=== PATIENT | female | born 1935 | race Caucasian/White ===

== ENCOUNTER → 2018-06-16 07:38 | Outpatient (CLI) | payer MEDICARE, OTHER, SELFPAY ==
--- NOTE | 2018-06-16 | DI.ECHO.S_ITS ---
[facility] +---------+ [facility] +---------+ : : [address] : : : : [place], [place] : : : : [id number] : : : : Phone: [phone]---------+ Echocardiogram Report + + :Name: OLIVA CHANEY Study Date: 06/16/2018 Height: 62 in : :[facility] Exam Location: IS Weight: 171 lb : : Gender: Female BSA: 1.8 m2 : :: 1935 Age: 82 yrs BP: 115/80 mmHg: :Reason For Study: SOB : :Ordering Physician: Tano : :José Performed By: Darcy Page : + + Interpretation Summary The left ventricle is normal in size. Normal wall thickness at the base with significant apical hypertrophy , this was noted on the prior exam as well. Left ventricular ejection fraction is estimated to be 70 +/- 5%. The echo findings are consistent with mild dynamic left ventricular intracavitary obstruction. E/E' med: 23.2 The right ventricle is normal in size and function. There is moderate mitral regurgitation. Compared to the prior echo study, there has been no change in the severity of mitral regurgitation. There is no hemodynamically significant valvular aortic stenosis. There is mild to moderate tricuspid regurgitation. Compared to the prior echo exam, there has been no change in TR severity. The right ventricular systolic pressure is estimated to be at least 33 mmHg based on an estimated right atrial pressure of 3 mm Hg. The ascending aorta is mildly enlarged. Procedure: A two-dimensional transthoracic echocardiogram with color flow and Doppler was performed. The study quality was technically adequate. A contrast injection of Definity was performed to improve assessment of LV function. Comparison is made with the echocardiogram of 01/17/2017. The heart rate ranged between 44-53 bpm during the study. The patient was in sinus bradycardia with heart rates between 44-53 bpm during the exam. The patient had occasional PACs during the exam. Left Ventricle: The left ventricle is normal in size. Normal wall thickness at the base with significant apical hypertrophy , this was noted on the prior exam as well. The echo findings are consistent with mild dynamic left ventricular intracavitary obstruction. There is no thrombus. Left ventricular ejection fraction is estimated to be 70 +/- 5%. There are no focal wall motion abnormalities. E/E' med: 23.2. Right Ventricle: The right ventricle is normal in size and function. Atria: The left atrium is severely dilated. The left atrium has remained unchanged in size since the prior echo exam. The right atrium is mildly dilated. There is no Doppler evidence for an interatrial shunt. Mitral Valve: The mitral valve leaflets appear mildly thickened, but open well. There is mild to moderate mitral annular calcification. There is moderate mitral regurgitation. Compared to the prior echo study, there has been no change in the severity of mitral regurgitation. Aortic Valve: The aortic valve is trileaflet. Leaflet mobility is mildly reduced. The aortic valve is mildly calcified. There is no hemodynamically significant valvular aortic stenosis. There is trace aortic regurgitation. Tricuspid Valve: The tricuspid valve is normal. There is mild to moderate tricuspid regurgitation. The right ventricular systolic pressure is estimated to be at least 33 mmHg based on an estimated right atrial pressure of 3 mm Hg. Compared to the prior echo exam, there has been no change in TR severity. Pulmonic Valve: The pulmonic valve is not well visualized. There is trace pulmonic regurgitation. Great Vessels: The aortic root is normal size. The ascending aorta is mildly enlarged. The pulmonary artery is not well visualized, but is probably normal size. The IVC is of normal diameter and collapses greater than 50% with a sniff. This suggests a low right atrial pressure of 3 mm Hg. Pericardium/ Pleura There is no pericardial effusion. There is no pleural effusion. MMode/2D Measurements & Calculations LVIDd: 5.4 cm LVOT diam: 2.0 cm LVIDs: 3.8 cm Ao root diam: 3.1 cm FS: 29.7 % asc Aorta Diam: 3.8 cm EPSS: 0.96 cm IVSd: 0.75 cm LVPWd: 0.94 cm LV bonds. diameter/BSA (cm/m^2): 3.0 LV sys. diameter/BSA (cm/m^2): 2.1 LA A2 area: 42.6 cm2 RA long axis: 6.7 cm LA A4 area: 39.5 cm2 RA area: 22.7 cm2 LA length (vol): 7.8 cm RA vol: 65.2 ml LA vol: 183.1 ml RA : 36.4 ml/m2 LA vol index: 102.4 ml/m2 IVC diam: 2.1 cm RVD1 (basal): 3.3 cm TAPSE: 2.9 cm Doppler Measurements & Calculations Ao V2 max: 205.1 cm/sec LVOT Max Mick: 73.5 cm/sec Ao V2 mean: 137.5 cm/sec LV V1 max P.2 mmHg Ao max P.8 mmHg LV V1 VTI: 17.2 cm Ao mean P.7 mmHg LEONEL(I,D): 1.2 cm2 Ao V2 VTI: 44.7 cm LEONEL(V,D): 1.1 cm2 sev ratio: 0.39 LEONEL indexed to BSA (cm^2/m^2): 0.69 MV E max mick: 108.9 cm/sec TR max mick: 271.8 cm/sec Med Peak E' Mick: 4.7 cm/sec TR max P.6 mmHg E/E' med: 23.2 PA V2 max: 63.6 cm/sec Lat Peak E' Mick: 5.9 cm/sec PA V2 mean: 43.1 cm/sec E/E' lat: 18.5 PA mean P.82 mmHg E/e' average: 20.9 PA Accel Time: 0.08 sec MV P1/2t: 58.4 msec MV P1/2t max mick: 109.6 cm/sec SV(LVOT): 54.9 ml MVA(P1/2t): 3.8 cm2 Reading Physician:OCTAVIA
== END ==
PROVIDERS: PCP Internal Medicine; Visit Provider Internal Medicine Cardiovascular Disease
DX: I08.1 Rheumatic disorders of both mitral and tricuspid valves (principal); R06.02 Shortness of breath; I77.89 Other specified disorders of arteries and arterioles
CPT/HCPCS: 93306; Q9957

== ENCOUNTER 2019-09-08 11:53 | Emergency (ER) | payer MEDICARE, OTHER, SELFPAY ==
[2019-09-08] VITALS (16 sets, daily range): BP systolic 122–155; BP diastolic 58–77; PULSE 59–70; RESP 18–36; TEMP 37.1; O2SAT 91–95
--- NOTE | 2019-09-08 12:10 | DI.RAD.S_ITS ---
PROCEDURE: XR CHEST 1V INDICATIONS: flu-like symptoms TECHNIQUE: One view of the chest was acquired. COMPARISON: None. FINDINGS: Surgical changes and devices: None. Lungs and pleura: Lungs are abnormal, with a mild pulmonary edema pattern. No pleural effusions or pneumothorax. Mediastinum: Mediastinal contours appear normal. Heart size is mildly enlarged. Bones and chest wall: No suspicious bony lesions. Overlying soft tissues appear unremarkable. IMPRESSION: Mild chronic CHF pattern with mild generalized pulmonary edema and mild cardiomegaly. Dictated by: Hal Deleon M.D. on 09/08/2019 at 13:25 Approved by: Hal Deleon M.D. on 09/08/2019 at 13:26
--- NOTE | 2019-09-08 12:13 | ED_ITS ---
HPI - SOB/Dyspnea General Chief Complaint: Shortness of Breath/Dyspnea Stated Complaint: SOB Time Seen by Provider: 09/08/19 11:57 Source: patient and family Mode of arrival: Wheelchair Limitations: no limitations History of Present Illness HPI Narrative: Patient is an 84-year-old female with history of atrial fibri llation and congestive heart failure presenting with increasing shortness of breath over the last 4 days. 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 She denies any fever chills or cough. She has had orthopnea over the last 2 nights. She denies any worsening lower extremity edema, although her left leg is more swollen than her right which is normal. She denies any chest pain or heart palpitations MD Complaint: shortness of breath Related Data Previous Rx's Medication Instructions Recorded furosemide [Lasix] 40 mg PO BID #6 tab 09/08/19 Allergies Allergy/AdvReac Type Severity Reaction Status Date / Time erythromycin base Allergy Unknown Verified 09/08/19 13:02 eucalyptus AdvReac Severe Headache Verified 09/08/19 13:02 Lzilwce-[id number]-Zwc Reductase AdvReac Severe Muscle Pain Verified 09/08/19 13:02 Inhibitor Review of Systems Review of Systems ROS Unobtainable: All systems reviewed & are unremarkable except as noted in HPI and below Constitutional Constitutional: Denies chills, Denies fever(s), Denies lethargy and Denies weakness Eyes Eyes: Denies change in vision, Denies eye discharge, Denies irritation and Denies loss of vision ENT Ears, Nose, Mouth, and Throat: Denies change in voice, Denies neck pain and Denies sore throat Cardiovascular Cardiovascular: Reports as per HPI and Reports dyspnea Respiratory Respiratory: Reports as per HPI and Reports dyspnea Musculoskeletal Musculoskeletal: Denies neck pain Integumentary/Breasts Skin/Breast: Denies pruritus, Denies erythema, Denies rash and Denies wounds Neurologic Neurologic: Denies loss of vision and Denies weakness Patient History Medical History Atrial fibrillation (Acute) CHF (congestive heart failure) (Acute) Social History Smoking Status: Former smoker Smoking Status: Former smoker alcohol intake frequency: 0-2 drinks per day Substance Use Type: does not use Exam Initial Vital Signs Initial Vital Signs: Vital Signs Temperature 98.8 F 09/08/19 12:01 Pulse Rate 64 09/08/19 12:01 Respiratory Rate 18 09/08/19 12:01 Blood Pressure 144/70 H 09/08/19 12:01 Pulse Oximetry 93 09/08/19 12:01 GENERAL: Pleasant alert well-appearing female and in no acute distress. HEENT: Head atraumatic,EOMI, pupils reactive, face symmetric, moist mucous membranes CARDIOVASCULAR: Regular rate and rhythm without murmurs, rubs or gallops. RESPIRATORY: Conversational dyspnea, slight expiratory wheezing no rales or rhonchi ABDOMEN: Soft, nontender. Normoactive bowel sounds all 4 quadrants. No guarding or rebound. EXTREMITIES: Normal range of motion, no clubbing or edema. Neurovascularly intact NEUROLOGICAL: Alert and oriented x4.Normal gait and speech. Cranial nerves II through XII grossly intact. SKIN: Warm, dry, no laceration, no petechiae, no rashes or lesions. Course Orders Ordered: ED Orders 09/08/19 12:01 EKG-12 Lead Stat 09/08/19 12:10 XR chest 1V Stat 09/08/19 13:16 C-Reactive Protein Quant Stat Complete Blood Count AUTO DIFF Stat Comprehensive Metabolic Panel Stat Ferritin Stat Lactate (Lactic Acid) Stat NT-proBNP (BNP-Adult 18+) Stat Procalcitonin Stat Troponin & CK Cardiac Panel Stat 09/08/19 13:40 Blood Culture Stat Discontinued Medications Furosemide (Lasix) 40 mg IV NOW ONE Stop: 09/08/19 13:36 Last Admin: 09/08/19 13:53 Dose: 40 mg Documented by: SCOTT Vital Signs Vital signs: Vital Signs - 8 hr 09/08/19 12:01 09/08/19 12:36 09/08/19 12:45 Temperature 98.8 F Pulse Rate 64 70 63 Respiratory Rate 18 25 H Blood Pressure 144/70 H 155/75 H 143/70 H Pulse Oximetry 93 93 94 09/08/19 13:00 09/08/19 13:15 09/08/19 13:30 Temperature Pulse Rate 67 64 61 Respiratory Rate 30 H 36 H Blood Pressure 132/77 140/70 129/73 Pulse Oximetry 93 94 93 09/08/19 13:45 09/08/19 14:00 09/08/19 14:15 Temperature Pulse Rate 63 63 Respiratory Rate Blood Pressure 144/69 H Pulse Oximetry 93 09/08/19 14:30 09/08/19 14:45 09/08/19 15:00 Temperature Pulse Rate 63 61 Respiratory Rate 28 H 28 H Blood Pressure 134/72 143/65 H Pulse Oximetry 92 94 09/08/19 15:01 09/08/19 15:15 09/08/19 15:16 Temperature Pulse Rate 59 L 63 61 Respiratory Rate 30 H 32 H 31 H Blood Pressure 146/71 H 140/67 Pulse Oximetry 94 95 94 09/08/19 15:30 Temperature Pulse Rate 60 Respiratory Rate 26 H Blood Pressure 122/58 L Pulse Oximetry 91 MDM - SOB/Dyspnea Lab Data Attestation: I reviewed the patient's lab results. Result diagrams: 09/08/19 13:16 09/08/19 13:16 Labs: Lab Results 09/08/19 09/08/19 09/08/19 Range/Units 13:16 13:16 13:16 WBC 8.9 (4.5-11.0) X10^3/uL RBC 4.09 (4.0-5.2) X10^6/uL Hgb 13.3 (12.0-16.0) g/dL Hct 39.2 (36-46) % MCV 95.7 (80-100) fL MCH 32.6 (26-34) PG MCHC 34.0 (30-36) % RDW 13.1 (11.6-14.8) % Plt Count 225 (150-400) X10^3/uL Neut % (Auto) 68.8 (50-75) % Lymph % (Auto) 23.6 L (25-40) % Faulk % (Auto) 5.2 (3-14) % Eos % (Auto) 1.9 L (2-4) % Baso % (Auto) 0.5 (0-2) % Neut # (Auto) 6100 (1983-4556) /uL Lymph # (Auto) 2100 (4448-4469) /uL Faulk # (Auto) 500 (0-900) /uL Eos # (Auto) 200 (0-450) /uL Baso # (Auto) 0 (0-100) /uL Sodium 139 (137-145) mmol/L Potassium 4.2 (3.4-5.1) mmol/L Chloride 105 (98-107) mmol/L Carbon Dioxide 24 (22-32) mmol/L BUN 17 (7-17) mg/dL Creatinine 0.60 (0.52-1.04) mg/dL Estimated GFR > 60.0 (>60) mL/min BUN/Creatinine Ratio 28.3 H (6-22) Glucose 112 H (80-110) mg/dL Lactate (0.7-2.1) mmol/L Calcium 9.9 (8.4-10.2) mg/dL Ferritin 128 (11-264) ng/mL Total Bilirubin 1.7 H (0.2-1.3) mg/dL AST 70 H (14-36) IU/L ALT 27 (<35) IU/L Alkaline Phosphatase 50 (38-126) U/L Total Creatine Kinase 203 H (30-135) U/L CK-MB (CK-2) 3.59 H (<2.37) ng/mL CK-MB (CK-2) Rel Index 1.8 (1.5-5.0) % Troponin I 0.016 (0.01-0.034) ng/mL C-Reactive Protein 13.1 H (<1.0) mg/dL NT-Pro-B Natriuret Pep 1800 H (<450) pg/mL Total Protein 7.8 (6.3-8.2) g/dL Albumin 4.5 (3.5-5.0) g/dL Globulin 3.3 (1.7-4.1) g/dL Albumin/Globulin Ratio 1.4 (1.0-2.8) Procalcitonin < 0.05 (<0.5) ng/mL COVID-19 PCR (Negative) 09/08/19 09/08/19 Range/Units 13:16 13:20 WBC (4.5-11.0) X10^3/uL RBC (4.0-5.2) X10^6/uL Hgb (12.0-16.0) g/dL Hct (36-46) % MCV (80-100) fL MCH (26-34) PG MCHC (30-36) % RDW (11.6-14.8) % Plt Count (150-400) X10^3/uL Neut % (Auto) (50-75) % Lymph % (Auto) (25-40) % Faulk % (Auto) (3-14) % Eos % (Auto) (2-4) % Baso % (Auto) (0-2) % Neut # (Auto) (8317-1718) /uL Lymph # (Auto) (6100-1416) /uL Faulk # (Auto) (0-900) /uL Eos # (Auto) (0-450) /uL Baso # (Auto) (0-100) /uL Sodium (137-145) mmol/L Potassium (3.4-5.1) mmol/L Chloride (98-107) mmol/L Carbon Dioxide (22-32) mmol/L BUN (7-17) mg/dL Creatinine (0.52-1.04) mg/dL Estimated GFR (>60) mL/min BUN/Creatinine Ratio (6-22) Glucose (80-110) mg/dL Lactate 1.5 (0.7-2.1) mmol/L Calcium (8.4-10.2) mg/dL Ferritin (11-264) ng/mL Total Bilirubin (0.2-1.3) mg/dL AST (14-36) IU/L ALT (<35) IU/L Alkaline Phosphatase (38-126) U/L Total Creatine Kinase (30-135) U/L CK-MB (CK-2) (<2.37) ng/mL CK-MB (CK-2) Rel Index (1.5-5.0) % Troponin I (0.01-0.034) ng/mL C-Reactive Protein (<1.0) mg/dL NT-Pro-B Natriuret Pep (<450) pg/mL Total Protein (6.3-8.2) g/dL Albumin (3.5-5.0) g/dL Globulin (1.7-4.1) g/dL Albumin/Globulin Ratio (1.0-2.8) Procalcitonin (<0.5) ng/mL COVID-19 PCR Negative (Negative) Imaging Data Chest x-ray: Radiologist's Impression: PROCEDURE: XR CHEST 1V INDICATIONS: flu-like symptoms TECHNIQUE: One view of the chest was acquired. COMPARISON: None. FINDINGS: Surgical changes and devices: None. Lungs and pleura: Lungs are abnormal, with a mild pulmonary edema pattern. No pleural effusions or pneumothorax. Mediastinum: Mediastinal contours appear normal. Heart size is mildly enlarged. Bones and chest wall: No suspicious bony lesions. Overlying soft tissues a ppear unremarkable. IMPRESSION: Mild chronic CHF pattern with mild generalized pulmonary edema and mild cardiomegaly. Dictated by: Hal Deleon M.D. on 09/08/2019 at 13:25 Approved by: Hal Deleon M.D. on 09/08/2019 at 13:26 ECG Data Attestation: I personally reviewed and interpreted this ECG as follows: Prior ECG tracings: available for review Interpretation: Normal sinus rhythm rate 67 p.r. interval 204 QRS [address] elevation depression or T-wave inversion Q-wave noted in lead 3 similar to previous EKG actually EKGs improved significantly from 2015 MDM Narrative Medical decision making narrative: Patient's COVID test is negative. She responded well to Lasix and is breathing much better in fact she is talking quite a lot. She has an ambulation trial and O2 level stays at 92%. She takes Lasix 40 mg once a day though it is prescribed 20 mg twice a day. I will give her 40 mg twice a day for the next 3 days. All questions have been answered. Discharge Plan Departure Patient Disposition: Home Clinical Impression: CHF (congestive heart failure) Qualifiers: Heart failure type: unspecified Heart failure chronicity: acute Qualified Code(s): I50.9 - Heart failure, unspecified Discharge Date/Time: 09/08/19 15:50 Instructions: DI for Heart Failure Activity Restrictions/Additional Instructions: *You have been diagnosed with congestive heart failure *What to do: COVID test negative *Continue to take medications as directed Lasix 40 mg twice a day for 3 days start tomorrow *Follow up with your primary care provider in 2-3 days *Return to ER if you should have increasing shortness of breath chest pain fever cough or any new, worsening or concerning symptoms Prescriptions: New furosemide [Lasix] 40 mg tablet 40 mg PO BID Qty: 6 RF: 0 Referrals: Natalee Martin MD [Primary Care Provider] - Tano Kumar MD [Physician] -
[2019-09-08 13:26] LABS: Add Manual Diff / Slide Review NO; Basophils Absolute Auto 0 /uL (0-100); Basophils Percent Auto 0.5 % (0-2); Eosinophils Absolute Auto 200 /uL (0-450); Eosinophils Percent Auto 1.9 % (2-4); Hematocrit 39.2 % (36-46); Hemoglobin 13.3 g/dL (12.0-16.0); Lymphocytes Absolute Auto 2100 /uL (1100-4500); Lymphocytes Percent Auto 23.6 % (25-40); Mean Corpuscular Hemoglobin 32.6 PG (26-34); Mean Corpuscular Volume 95.7 fL (80-100); Monocytes Absolute Auto 500 /uL (0-900); Monocytes Percent Auto 5.2 % (3-14); Neutrophils Absolute Auto 6100 /uL (1500-7000); Neutrophils Percent Auto 68.8 % (50-75); Platelet Count 225 X10^3/uL (150-400); Red Blood Cell Count 4.09 X10^6/uL (4.0-5.2); Red Cell Distribution Width 13.1 % (11.6-14.8); White Blood Cell Count 8.9 X10^3/uL (4.5-11.0)
[2019-09-08] MEDS: FUROSEMIDE 40 MG/4 ML VIAL IV (13:53)
[2019-09-08 14:05] LABS: Lactate (Lactic Acid) 1.5 mmol/L (0.7-2.1)
[2019-09-08 14:07] LABS: Alanine Aminotransferase 27 IU/L (<35); Albumin 4.5 g/dL (3.5-5.0); Albumin Globulin Ratio 1.4 (1.0-2.8); Alkaline Phosphatase 50 U/L (38-126); Aspartate Aminotransferase 70 IU/L (14-36); BUN Creatinine Ratio 28.3 (6-22); Bilirubin Total 1.7 mg/dL (0.2-1.3); Blood Urea Nitrogen 17 mg/dL (7-17); Calcium 9.9 mg/dL (8.4-10.2); Carbon Dioxide 24 mmol/L (22-32); Chloride 105 mmol/L (98-107); Creatine Kinase 203 U/L (30-135); Estimated Glomerular Filt Rate > 60.0 mL/min (>60); Globulin 3.3 g/dL (1.7-4.1); Glucose 112 mg/dL (80-110); HEMOLYSIS 21 (0-50); Potassium 4.2 mmol/L (3.4-5.1); Sodium 139 mmol/L (137-145); Total Protein 7.8 g/dL (6.3-8.2)
[2019-09-08 14:15] LABS: Procalcitonin < 0.05 ng/mL (<0.5)
[2019-09-08 14:16] LABS: NT-proBNP (BNP-Adult 18+) 1800 pg/mL (<450); Troponin I 0.016 ng/mL (0.01-0.034)
[2019-09-08 14:19] LABS: C-Reactive Protein Quant 13.1 mg/dL (<1.0)
[2019-09-08 14:20] LABS: CKMB % Relative Index 1.8 % (1.5-5.0); Creatine Kinase MB 3.59 ng/mL (<2.37)
[2019-09-08 14:39] LABS: Ferritin 128 ng/mL (11-264)
[2019-09-08 15:12] LABS: COVID19 -Nasal RAPID Negative (Negative)
== END 2019-09-08 15:50 | disposition home or self-care (01) ==
PROVIDERS: Emergency Provider Emergency Medicine; PCP Internal Medicine
DX: I50.9 Heart failure, unspecified (principal); R68.89 Other general symptoms and signs; I48.91 Unspecified atrial fibrillation; R06.02 Shortness of breath
CPT/HCPCS: 36415; 71045; 80053; 82550; 82553; 82728; 83605; 83880; 84145; 84484; 85025; 86140; 87040; 87635; 93005; 93010; 96374; 99284; J1940

== ENCOUNTER → 2020-09-14 12:05 | Outpatient (CLI) | payer MEDICARE, OTHER, SELFPAY ==
--- NOTE | 2020-09-14 | DI.US.S_ITS ---
PROCEDURE: US CAROTID DOPPLER BI INDICATIONS: Dizziness and giddiness TECHNIQUE: Color and pulse Doppler interrogation was performed of both carotid systems, with image documentation and velocity measurements. COMPARISON: None. FINDINGS: Stenosis calculations are based on SRU (Society of Radiologists in Ultrasound) criteria. Right side: Brachial blood pressure: 152/92 mm Hg. Common carotid artery peak systolic velocity: 41 cm/sec. Internal carotid artery peak systolic velocity: 46 cm/sec. Internal carotid artery end diastolic velocity: 21 cm/sec. External carotid artery peak systolic velocity: 55 cm/sec. ICA/CCA peak systolic ratio: 1.1 . Willis scale imaging description: No visualized plaque. Percent internal carotid artery stenosis: No hemodynamically significant stenosis . Vertebral artery: Flow direction is antegrade. Left side: Brachial blood pressure: 142/89 mm Hg. Common carotid artery peak systolic velocity: 46 cm/sec. Internal carotid artery peak systolic velocity: 52 cm/sec. Internal carotid artery end diastolic velocity: 14 cm/sec. External carotid artery peak systolic velocity: 54 cm/sec. ICA/CCA peak systolic ratio: 1.1 . Willis scale imaging description: Mild plaque at the bifurcation. Percent internal carotid artery stenosis: Less than 50% . Vertebral artery: Flow direction is antegrade. IMPRESSION: Less than 50% stenosis of the left internal carotid artery. Dictated by: Shannan Dolan M.D. on 09/14/2020 at 15:50 Approved by: Shannan Dolan M.D. on 09/14/2020 at 15:51
== END ==
PROVIDERS: PCP Internal Medicine; Referring Provider Internal Medicine Cardiovascular Disease; Visit Provider Internal Medicine Cardiovascular Disease
DX: I65.22 Occlusion and stenosis of left carotid artery (principal); R42 Dizziness and giddiness
CPT/HCPCS: 93880

== ENCOUNTER → 2021-07-13 09:48 | Outpatient (CLI) | payer MEDICARE, OTHER, SELFPAY ==
[2021-07-13 10:42] LABS: COVID19 -Nasal RAPID Negative (Negative)
== END ==
PROVIDERS: PCP Internal Medicine; Referring Provider Internal Medicine; Visit Provider Internal Medicine
DX: Z20.822 Contact with and (suspected) exposure to COVID-19 (principal)
CPT/HCPCS: 87635; C9803

== ENCOUNTER → 2021-07-14 09:34 | Outpatient (CLI) | payer MEDICARE, OTHER, SELFPAY ==
--- NOTE | 2021-07-21 08:08 | PM.PFT.1 ---
Pulmonary Function Test Referral & Results Date Patient Seen: 07/14/21 Requesting provider: Maricel Gunderson Results: The spirometry demonstrates an FVC of 1.69 L which is 80% of predicted. The FEV1 was measured at 1.37 L which is 88% of predicted. The FEV1/FVC ratio was 81 which is 110% of predicted. Following the administration of bronchodilator there was 11% improvement in FEV1 and a 49% improvement in FEF 25-75% Lung volumes show an SVC of 1.94 L which is 82% of predicted. The diffusing capacity was measured at 17.88 which is 82% of predicted. No hemoglobin value was provided, so no correction for potential anemia could be made, if appropriate. The maximum voluntary ventilation was normal Interpretation: This study demonstrates possibly very mild obstructive lung disease based on minimal reduction FEV1 (although FEV1/FVC ratio is preserved) more prominently some evidence of improvement following bronchodilator. However this could also be interpreted as normal Lung volumes are normal Diffusing capacity is also probably normal Overall this study demonstrates probably normal pulmonary function with the possibility of very mild obstructive lung disease based on reduction FEV1 and the improvement post bronchodilator Clinical correlation suggested
== END ==
PROVIDERS: PCP Internal Medicine; Referring Provider Nurse Practitioner; Visit Provider Nurse Practitioner
DX: R06.02 Shortness of breath (principal); Z87.891 Personal history of nicotine dependence; J98.8 Other specified respiratory disorders
CPT/HCPCS: 94060; 94726; 94729

== ENCOUNTER → 2021-08-21 14:41 | Outpatient (CLI) | payer MEDICARE, OTHER, SELFPAY ==
--- NOTE | 2021-08-21 | DI.ECHO.S_ITS ---
[place] +---------+ Hospital +---------+ : : [address] : : : : [place] : : : : [id number] : : : : Phone: [phone] +---------+ Echocardiogram Report + + :Name: OLIVA CHANEY Study Date: 08/21/2021 Height: 62 in : :[facility] ReadingLocation: Weight: 171 lb : : Gender: Female BSA: 1.8 m2 : :: 1935 Age: 86 yrs BP: 134/97 mmHg: :Reason For Study: ATRIAL FIBRILLATION : :Ordering Physician: HAI, : :MARIKA Major Performed By: Nancy Connors : :Referring: MARIKA VALLES : + + Interpretation Summary Apical hypertrophy is present. The ejection fraction is estimated to be 70-75%. The left atrium is severely dilated. The right atrium is moderately dilated. There is mild to moderate mitral regurgitation. The peak aortic velocity is 2.6 m/sec. Intra LV cavity gradient was not measured. There is moderately restricted mobility of the aortic valve leaflets. Calculated valve area 0.97 cm. This might be an overestimate of the severity of aortic stenosis. There is mild tricuspid regurgitation. The right ventricular systolic pressure is estimated to be at least 34 mmHg based on an estimated right atrial pressure of 3 mm Hg. Procedure: A two-dimensional transthoracic echocardiogram with color flow and Doppler was performed. The study quality was technically adequate. Comparison is made with the echocardiogram of 05/14/2014. A contrast injection of Definity was performed to improve assessment of LV function. The patient was in atrial fibrillation with heart rates between 82-104 bpm during the exam. Left Ventricle: The left ventricle is normal in size. Apical hypertrophy is present. The ejection fraction is estimated to be 70-75%. Left ventricular wall motion is normal. Right Ventricle: The right ventricle is normal in size and function. Atria: The left atrium is severely dilated. The right atrium is moderately dilated. There is no Doppler evidence for an interatrial shunt. Mitral Valve: There is moderate mitral annular calcification. The mitral valve leaflets appear mildly thickened, but open well. There is mild to moderate mitral regurgitation. Aortic Valve: The aortic valve is mildly calcified. The peak aortic velocity is 2.6 m/sec. The aortic valve mean gradient is 14 mmHg. The calculated aortic valve area is 0.97 cm2. Intra LV cavity gradient was not measured. There is moderately restricted mobility of the aortic valve leaflets. Calculated valve area 0.97 cm. This might be an overestimate of the severity of aortic stenosis. No aortic regurgitation is present. Tricuspid Valve: The tricuspid valve is normal in structure and function. There is mild tricuspid regurgitation. The right ventricular systolic pressure is estimated to be at least 34 mmHg based on an estimated right atrial pressure of 3 mm Hg. Pulmonic Valve: The pulmonic valve leaflets are thin and pliable; valve motion is normal. There is mild pulmonic regurgitation. Great Vessels: The aortic root is normal size. The dimensions of the ascending aorta are normal. The IVC is of normal diameter and collapses greater than 50% with a sniff. This suggests a low right atrial pressure of 3 mm Hg. Pericardium/ Pleura There is no pericardial effusion. There is no pleural effusion. MMode/2D Measurements & Calculations LVIDd: 4.8 cm LVOT diam: 2.0 cm LVIDs: 2.9 cm Ao root diam: 3.1 cm FS: 38.5 % asc Aorta Diam: 3.8 cm IVSd: 0.80 cm Ao Arch Diam (Prox Trans): 3.4 cm LVPWd: 1.0 cm LV bonds. diameter/BSA (cm/m^2): 2.7 LV sys. diameter/BSA (cm/m^2): 1.6 LA A2 area: 36.6 cm2 RA long axis: 6.5 cm LA A4 area: 34.8 cm2 RA area: 24.2 cm2 LA length (vol): 7.4 cm RA vol: 76.9 ml LA vol: 145.3 ml RA : 43.0 ml/m2 LA vol index: 81.2 ml/m2 IVC diam: 1.6 cm RVD1 (basal): 3.1 cm RVD2 (mid): 2.8 cm TAPSE: 1.7 cm Doppler Measurements & Calculations Ao V2 max: 256.9 cm/sec LVOT Max Mick: 79.4 cm/sec Ao V2 mean: 163.9 cm/sec LV V1 max P.5 mmHg Ao max P.4 mmHg LV V1 VTI: 13.3 cm Ao mean P.0 mmHg LEONEL(I,D): 0.98 cm2 Ao V2 VTI: 42.9 cm LEONEL(V,D): 0.97 cm2 sev ratio: 0.31 LEONEL indexed to BSA (cm^2/m^2): 0.55 MV E max mick: 109.5 cm/sec TR max mick: 279.2 cm/sec MV A max mick: 4.3 cm/sec TR max P.2 mmHg MV E/A: 25.3 PA V2 max: 91.8 cm/sec Med Peak E' Mick: 5.2 cm/sec PA V2 mean: 62.8 cm/sec E/E' med: 21.1 PA mean P.8 mmHg Lat Peak E' Mick: 6.3 cm/sec PA pr(Accel): 44.7 mmHg E/E' lat: 17.3 E/e' average: 19.2 MV dec time: 0.17 sec MR ERO: 0.16 cm2 MR PISA: 2.7 cm2 SV(LVOT): 42.1 ml MR flow rate: 86.7 cm3/sec MR PISA radius: 0.66 cm Reading Physician:09:49 AM
== END ==
PROVIDERS: PCP Internal Medicine; Referring Provider Nurse Practitioner; Visit Provider Nurse Practitioner
DX: I48.0 Paroxysmal atrial fibrillation (principal); I08.3 Combined rheumatic disorders of mitral, aortic and tricuspid valves
CPT/HCPCS: 93306; Q9957

== ENCOUNTER 2024-07-28 03:07 | Inpatient (IN) | payer MEDICARE, OTHER, SELFPAY ==
[2024-07-28] VITALS (20 sets, daily range): BP systolic 97–157; BP diastolic 48–85; PULSE 72–103; RESP 12–25; TEMP 35.9–36.5; O2SAT 93–98; BMI 28.2
--- NOTE | 2024-07-28 03:13 | ED.TRAUMA ---
HPI - Trauma General Chief Complaint: Trauma Stated Complaint: syncope L hip deformity Time Seen by Provider: 07/28/24 03:13 History of Present Illness HPI narrative: 89-year-old female resides at assisted living facility with a history of CHF and atrial fibrillation on Eliquis brought in for a fall given 150 of fentanyl prior to arrival here with left hip pain and swelling. Patient has no recollection of how she fell but thinks she got up to go to the use the bathroom and has been battling dizziness the past week of the next thing she knew she was on the floor. Patient denies headache, dizziness, chest pain, shortness of breath, dyspnea on exertion, neck, back, arm pain. Patient does have a history of CHF for she for which has been seen a recently a national park ranger and was told to double her Lasix to twice a day from once a day. She does report eating more salty foods due to her living condition at assisted living facility with lunch meats and has gained a few pounds. Other than what is stated 14 point review of system is negative. Related Data Previous Rx's Medication Instructions Recorded furosemide 40 mg tablet (Lasix) 40 mg PO BID #6 tabs 09/08/19 Allergies Allergy/AdvReac Type Severity Reaction Status Date / Time erythromycin base Allergy Unknown Verified 09/08/19 13:02 eucalyptus AdvReac Severe Headache Verified 09/08/19 13:02 Ishywjc-LVM-HcI Reductase AdvReac Severe Muscle Pain Verified 09/08/19 13:02 Inhibitor [Guvuqbf-Imm-Fow Reductase Inhibitor] Review of Systems Review of Systems ROS Unobtainable: All systems reviewed & are unremarkable except as noted in HPI and below Patient History Medical History (Updated 07/28/24 @ 06:46 by Enoc Linda DO) CHF (congestive heart failure) Atrial fibrillation Social History Smoking Status: Former smoker alcohol intake frequency: 0-2 drinks per day Exam Narrative Exam Narrative: GENERAL: [89] year old patient appears stated age. Well-developed patient, in mild distress. HEAD: Atraumatic. Normocephalic. EYES: Pupils equal round and reactive. Extraocular motions intact. No scleral icterus. No injection or drainage. ENT: Nose without bleeding, purulent drainage. Throat without erythema, tonsillar hypertrophy or exudate. Airway patent. NECK: Trachea midline. Non tender CARDIOVASCULAR: Irregular rate and rhythm without murmurs, gallops, or rubs. RESPIRATORY: Clear to auscultation. Breath sounds equal bilaterally. No wheezes, rales, or rhonchi. GASTROINTESTINAL: Abdomen soft, non-tender, nondistended. EXTREMITIES: Left hip thigh region proximal to mid distal region contusion and hematoma for which she has decreased range of motion in all directions but still able to flex at the hip knee and ankle joint. Motor sensory intact +2 DP +2 PT cap refill less than 2 seconds +1 pitting edema pretibial bilateral lower extremity BACK: Nontender without deformity or crepitance. No flank tenderness. NEURO: AOx3. GCS 15 nonfocal neuro exam moving all her arms and legs spontaneously with no difficulty SKIN: L distal posterior humeral region abrasion 3x3cm, L ear triangula fossa superficial oval shape laceration 0.25x0.25cm Initial Vital Signs Initial Vital Signs: Vital Signs Pulse Rate 90 07/28/24 03:11 Respiratory Rate 12 07/28/24 03:11 Blood Pressure 157/85 H 07/28/24 03:11 Procedures Laceration Repair Laceration 1: Time of procedure: 05:06 Side (If applicable): left (Ear) Size (cm): 0.25 Description: flap, irregular and clean Depth: simple, single layer Local Anesthetic: lidocaine 1% and with epi Amount of anesthesia used (mL): 1 Skin layer closed with: nylon Skin layer suture size: 5-0 Number of sutures: 4 Technique: simple, interrupted Course Orders Ordered: ED Orders 07/28/24 03:10 Complete Blood Count AUTO DIFF Stat Comprehensive Metabolic Panel Stat Lipase Stat Magnesium Stat NT-proBNP (BNP-Adult 18+) Stat PTT Partial Thromboplastin Mason Stat Prothrombin Time INR Stat Troponin & CK Cardiac Panel Stat 07/28/24 03:19 CT head/brain wo con Stat CXR [XR chest 1V] Stat XR pelvis 1-2V Stat 07/28/24 03:23 EKG-12 Lead Stat 07/28/24 03:30 CT pelvis wo con Stat 07/28/24 05:10 Trop I [Troponin I] Stat Vital Signs Vital signs: Vital Signs - 8 hr 07/28/24 03:11 07/28/24 03:11 07/28/24 03:30 Pulse Rate 90 82 Respiratory Rate 12 17 Blood Pressure 157/85 H Pulse Oximetry 97 Oxygen Delivery Method Room Air 07/28/24 03:48 07/28/24 03:48 07/28/24 04:00 Pulse Rate 84 79 Respiratory Rate 18 16 Blood Pressure 139/66 Pulse Oximetry 93 96 Oxygen Delivery Method Room Air Room Air 07/28/24 04:00 07/28/24 04:30 07/28/24 04:30 Pulse Rate 72 Respiratory Rate 19 Blood Pressure 150/85 H 153/66 H Pulse Oximetry 94 Oxygen Delivery Method Room Air 07/28/24 05:00 07/28/24 05:27 07/28/24 05:27 Pulse Rate 82 81 Respiratory Rate 20 21 Blood Pressure 116/59 L Pulse Oximetry 96 96 Oxygen Delivery Method Room Air Room Air 07/28/24 05:30 07/28/24 05:30 07/28/24 06:00 Pulse Rate 80 90 Respiratory Rate 19 25 H Blood Pressure 123/65 Pulse Oximetry 97 96 Oxygen Delivery Method Room Air Room Air 07/28/24 06:01 07/28/24 06:01 Pulse Rate 86 Respiratory Rate 16 Blood Pressure 132/75 Pulse Oximetry 97 Oxygen Delivery Method Room Air MDM - Trauma Lab Data 07/28/24 03:10 07/28/24 03:10 Labs: Lab Results 07/28/24 07/28/24 Range/Units 03:10 05:10 WBC 7.5 (4.5-11.0) X10^3/uL RBC 3.07 L (4.0-5.2) X10^6/uL Hgb 10.1 L (12.0-16.0) g/dL Hct 29.9 L (36-46) % MCV 97.2 (80-100) fL MCH 32.7 (26-34) PG MCHC 33.7 (30-36) % RDW 15.1 H (11.6-14.8) % Plt Count 275 (150-400) X10^3/uL Neut % (Auto) 65.5 (50-75) % Lymph % (Auto) 19.8 L (25-40) % Ada % (Auto) 8.5 (3-14) % Eos % (Auto) 4.5 H (2-4) % Baso % (Auto) 1.7 (0-2) % Neut # (Auto) 4900 (7879-7570) /uL Lymph # (Auto) 1500 (9112-2210) /uL Ada # (Auto) 600 (0-900) /uL Eos # (Auto) 300 (0-450) /uL Baso # (Auto) 100 (0-100) /uL PT 16.2 H (9.4-12.5) SECONDS INR 1.4 H (0.9-1.3) APTT 37 H (25.1-36.5) SECONDS Sodium 139 (137-145) mmol/L Potassium 3.4 (3.4-5.1) mmol/L Chloride 105 (98-107) mmol/L Carbon Dioxide 26 (22-32) mmol/L BUN 53 H (7-17) mg/dL Creatinine 2.90 H (0.52-1.04) mg/dL Estimated GFR 15 L (>60) mL/min BUN/Creatinine Ratio 18.3 (6-22) Glucose 151 H (70-99) mg/dL Calcium 8.6 (8.4-10.2) mg/dL Magnesium 1.7 (1.6-2.3) mg/dL Total Bilirubin 0.6 (0.2-1.3) mg/dL AST 75 H (14-36) IU/L ALT 50 H (<35) IU/L Alkaline Phosphatase 81 (38-126) U/L Total Creatine Kinase 113 (30-135) U/L Troponin I 0.066 H 0.072 H (0.01-0.034) ng/mL NT-Pro-B Natriuret Pep 84024 H (<450) pg/mL Total Protein 6.3 (6.3-8.2) g/dL Albumin 3.6 (3.5-5.0) g/dL Globulin 2.7 (1.7-4.1) g/dL Albumin/Globulin Ratio 1.3 (1.0-2.8) Lipase 433 H (23-300) U/L ECG Data Interpretation: Afib HR 84 [place] undetermined QRS [address]-t wave change No previous EKG MDM Narrative Medical decision making narrative: All lab work, vital signs, nurse triage note, medication list, CT scan x-rays all reviewed. CT pelvis showed no acute traumatic injury bilateral hip arthroplasties with adequate postoperative alignment. Chest x-ray showed no acute cardiopulmonary process. CT head showed no acute intracranial abnormality. Lab work shows no elevated white count hemoglobin 10.1 platelets 275 INR 1.4 BUN 53 creatinine 2.9. Troponin 1st set 0.066 BNP 02268 lipase 433. Differential diagnosis includes brain hemorrhage, hip fracture or dislocation, rib fracture, pneumothorax, contusion, hematoma, and laceration. Case discussed with Dr. Grey Ahmadi MD hydroelectric station operator chief medical management at this time and to do diurese and monitor renal function and no cardiac intervention at this time she is anticoagulated on Eliquis in light of 2 sets of troponin elevation. Case discussed with Dr. Mazariegos who has accepted the patient for inpatient admission ops tele normal saline 125 mL Discharge Plan Departure Patient Disposition: Admitted as Observation Clinical Impression: Acute kidney injury Fall Qualifiers: Encounter type: initial encounter Qualified Code(s): W19.XXXA - Unspecified fall, initial encounter Contusion of hip and thigh Qualifiers: Encounter type: initial encounter Laterality: left Qualified Code(s): S70.02XA - Contusion of left hip, initial encounter Laceration of ear, left, simple Qualifiers: Encounter type: initial encounter Qualified Code(s): S01.312A - Laceration without foreign body of left ear, initial encounter Prescriptions: No Action furosemide [Lasix] 40 mg tablet 40 mg PO BID Qty: 6 0RF Referrals: Natalee Vigil MD [Primary Care Provider] - Admit Date/Time: 07/28/24 07:22 Admit Provider: Lauro Mazariegos
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
--- NOTE | 2024-07-28 03:24 | EKG_ITS ---
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
--- NOTE | 2024-07-28 03:27 | PC.NURSE ---
Imaging at bedside
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
--- NOTE | 2024-07-28 03:32 | PC.NURSE ---
Pt to imaging via ED stretcher with RN and document imaging specialist
[2024-07-28 03:37] LABS: INR 1.4 (0.9-1.3); Prothrombin Time 16.2 SECONDS (9.4-12.5)
[2024-07-28 03:39] LABS: Add Manual Diff / Slide Review NO; Basophils Absolute Auto 100 /uL (0-100); Basophils Percent Auto 1.7 % (0-2); Eosinophils Absolute Auto 300 /uL (0-450); Eosinophils Percent Auto 4.5 % (2-4); Hematocrit 29.9 % (36-46); Hemoglobin 10.1 g/dL (12.0-16.0); Lymphocytes Absolute Auto 1500 /uL (1100-4500); Lymphocytes Percent Auto 19.8 % (25-40); Mean Corpuscular HGB Conc 33.7 % (30-36); Mean Corpuscular Hemoglobin 32.7 PG (26-34); Mean Corpuscular Volume 97.2 fL (80-100); Monocytes Absolute Auto 600 /uL (0-900); Monocytes Percent Auto 8.5 % (3-14); Neutrophils Absolute Auto 4900 /uL (1500-7000); Neutrophils Percent Auto 65.5 % (50-75); Platelet Count 275 X10^3/uL (150-400); Red Blood Cell Count 3.07 X10^6/uL (4.0-5.2); Red Cell Distribution Width 15.1 % (11.6-14.8); White Blood Cell Count 7.5 X10^3/uL (4.5-11.0)
[2024-07-28 03:40] LABS: PTT Partial Thromboplastin Tim 37 SECONDS (25.1-36.5)
[2024-07-28 03:42] LABS: Alanine Aminotransferase 50 IU/L (<35); Albumin 3.6 g/dL (3.5-5.0); Albumin Globulin Ratio 1.3 (1.0-2.8); Alkaline Phosphatase 81 U/L (38-126); Aspartate Aminotransferase 75 IU/L (14-36); BUN Creatinine Ratio 18.3 (6-22); Bilirubin Total 0.6 mg/dL (0.2-1.3); Blood Urea Nitrogen 53 mg/dL (7-17); Calcium 8.6 mg/dL (8.4-10.2); Carbon Dioxide 26 mmol/L (22-32); Chloride 105 mmol/L (98-107); Creatine Kinase 113 U/L (30-135); Estimated Glomerular Filt Rate 15 mL/min (>60); Globulin 2.7 g/dL (1.7-4.1); Glucose 151 mg/dL (70-99); HEMOLYSIS 19 (0-50); Lipase 433 U/L (23-300); Magnesium 1.7 mg/dL (1.6-2.3); Potassium 3.4 mmol/L (3.4-5.1); Sodium 139 mmol/L (137-145); Total Protein 6.3 g/dL (6.3-8.2)
[2024-07-28 03:54] LABS: NT-proBNP (BNP-Adult 18+) 15000 pg/mL (<450); Troponin I 0.066 ng/mL (0.01-0.034)
[2024-07-28 05:41] LABS: Troponin I 0.072 ng/mL (0.01-0.034)
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
[2024-07-28] MEDS: SODIUM CHLORIDE 0.9% 1,000 ML 125 ML IV (07:41)
[2024-07-28] MEDS: ACETAMINOPHEN 325 MG TABLET 650 MG PO ×2 (07:59→16:18)
--- NOTE | 2024-07-28 14:20 | PC.NURSE ---
Patient is A&OX4, VSS, afebrile on RA. She arrives from ED this a.m. and denies c/o dizziness. She is able to stand with x1 SBA using FWW and ambulate to the BR to void. She has a laceration to L ear HELENA, CDI, bruising to L elbow and L LE, hip and down thigh. She does have +edema to BLE's. She denies SOB, CP, N/V, diarrhea. She tolerates lunch well and calls appropriately. Continuous monitoring, telemetry placed, bed alarm on, call light in reach, admission assessment completed,and NS at 125ml/hr.
[2024-07-28] MEDS: PANTOPRAZOLE DR 40 MG TABLET PO (20:48)
[2024-07-28] MEDS: APIXABAN 5 MG TABLET 2.5 MG PO (20:48)
[2024-07-29] VITALS (13 sets, daily range): BP systolic 100–117; BP diastolic 53–80; PULSE 60–118; RESP 12–20; TEMP 35.7–36.3; O2SAT 95–99
[2024-07-29] MEDS: ACETAMINOPHEN 325 MG TABLET 650 MG PO ×3 (04:23→20:37)
[2024-07-29 06:05] LABS: Hematocrit 21.2 % (36-46); Mean Corpuscular HGB Conc 33.2 % (30-36); Mean Corpuscular Hemoglobin 32.3 PG (26-34); Mean Corpuscular Volume 97.1 fL (80-100); Platelet Count 218 X10^3/uL (150-400); Red Blood Cell Count 2.18 X10^6/uL (4.0-5.2); Red Cell Distribution Width 14.9 % (11.6-14.8); White Blood Cell Count 7.1 X10^3/uL (4.5-11.0)
[2024-07-29 06:14] LABS: BUN Creatinine Ratio 19.5 (6-22); Blood Urea Nitrogen 58 mg/dL (7-17); Calcium 8.5 mg/dL (8.4-10.2); Carbon Dioxide 25 mmol/L (22-32); Chloride 104 mmol/L (98-107); Estimated Glomerular Filt Rate 15 mL/min (>60); Glucose 122 mg/dL (70-99); HEMOLYSIS < 15 (0-50); Potassium 3.3 mmol/L (3.4-5.1); Sodium 136 mmol/L (137-145)
[2024-07-29 06:36] LABS: Troponin I 0.458 ng/mL (0.01-0.034)
--- NOTE | 2024-07-29 07:53 | P.PN_ITS ---
Subjective Subjective Interval history: Summary: Patient presented with syncopal episode, has known history of AF on chronic anticoagulation and critical . Being evaluated by [facility] for possible TAVR. 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 She did drift down to a hemoglobin of 7 overnight. No BM or report of rectal bleeding. She was had intermittent dark stools in the past. Heart rate has been going into the high 140s with exertion. Metoprolol had been held yesterday due to hypotension. S: No dyspnea or chest pain. No edema. Exam Vital Signs (past 8 hours): - 07/29/24 00:30 07/29/24 05:02 Temperature 97.0 F L 96.8 F L Pulse Rate 87 80 Respiratory Rate 16 16 Blood Pressure 107/53 L 104/57 L Pulse Oximetry 95 95 Oxygen Flow Rate 0 0 Oxygen Delivery Method Room Air Oxygen Flow Rate 0 Narrative Exam Narrative: NAD, alert and oriented. Fluent speech. Lungs are clear, normal rate and effort. Heart is irregular, 4/6 systolic murmur and no gallop or rub. Abdomen is soft, non distended. Extremities are free of edema. Objective Labs 07/29/24 05:10 07/29/24 05:10 Labs: Laboratory Results - last 24 hr 07/29/24 05:10 WBC 7.1 RBC 2.18 L Hgb 7.0 L Hct 21.2 L MCV 97.1 MCH 32.3 MCHC 33.2 RDW 14.9 H Plt Count 218 Sodium 136 L Potassium 3.3 L Chloride 104 Carbon Dioxide 25 BUN 58 H Creatinine 2.97 H Estimated GFR 15 L BUN/Creatinine Ratio 19.5 Glucose 122 H Calcium 8.5 Troponin I 0.458 H* PFSH Medical History CHF (congestive heart failure) Atrial fibrillation Social History household members: spouse Smoking Status: Former smoker alcohol intake: current Assessment & Plan Assessment & Plan narrative: 1. Syncope, resolved. 2. CKD 4, stable. 3. Severe aortic stenosis, active. 3. Possible CHF, active. 4. Atrial fibrillation, stable. On Eliquis. 5. 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 Followed by [facility] cardiology. Rush. PLAN: -telemetry. -DNR -1 unit of blood today with Lasix 20 IV -resume metoprolol and monitor heart rate -discuss care with cardiology. She was going to see Dr. Salazar yesterday for a review regarding feasibility and appropriateness of a TAVR. She ended up in the hospital instead. BERNARDA: 07/29. Observation status. Time-Based Coding :: [TOTAL MINUTES] spent with patient and on the chart (including review of chart, obtaining history, exam, reviewing outside data, placing orders, documenting exam and treatment plan, and counseling patient) on [DATE].
[2024-07-29] MEDS: PANTOPRAZOLE DR 40 MG TABLET PO ×2 (10:34→20:37)
[2024-07-29] MEDS: APIXABAN 5 MG TABLET 2.5 MG PO ×2 (10:34→20:38)
[2024-07-29] MEDS: SODIUM CHLORIDE 0.9% FLUSH 10 ML IV (10:35)
[2024-07-29] MEDS: METOPROLOL ER 50 MG TABLET 100 MG PO ×2 (10:36→20:36)
[2024-07-29] MEDS: FUROSEMIDE 20 MG/2 ML VIAL IV (12:56)
--- NOTE | 2024-07-29 13:11 | CM.DANOTE ---
Initial DCP Assessment Note Pt is a 89 yo female, resident at [facility] assisted living [facility] in [place], presents after syncopal episode. PCP: Dr. Noguera Payer: ALAN/Sandra Reviewed chart, pt discussed in multidisciplinary rounds this morning. Patient is likely to be discharged today after blood and lasix is given. Met w/patient who reports living mostly independently with spouse at [facility]. Patient is indp w/walker, spouse drives. Discussed HH, patient has no HH or SNF hx. Patient politely declines HH however requests HH brochures for future reference; [facility] brochures given. No barriers identified at this time to patient's safe discharge home w/family to assist; close outpatient f/u recommended. CM team will plan to follow clinical course closely in case any DC needs or concerns arise. JONNY Santos Discharge Planning/Care Management CM Discharge Assessment Start: 07/28/24 08:27 Freq: Status: Active Protocol: Document 07/29/24 13:09 JOBY (Rec: 07/29/24 13:10 JOBY [id number]) Discharge Planning Assessment Assigned Electrical Maintenance Man JONNY Collado DPOA/Assigned Designee Name Eleno Chauhan-Spouse P Advance Directives? No History Provided By Patient,Medical Record Has Patient been admitted in last 30 No days? Prior Living Arrangements Assisted Living Household Members spouse Type of transporation used prior to Relies on Others admit Facility Name Admitted From: [facility] Willing to Return to Facility? Yes Independent with ADL's Yes: Uses walker Is patient alert and oriented? Yes Needs Assistance With Home Chores / Shopping Barriers to Discharge No Discharge Plan Assisted Living Facility Transportation Arrangement Spouse Referrals Initiated None needed Additional Comment Discussed home health, patient declined at this time.
[2024-07-29 16:56] LABS: Hematocrit 25.6 % (36-46); Hemoglobin 8.9 g/dL (12.0-16.0)
[2024-07-30] VITALS (11 sets, daily range): BP systolic 107–133; BP diastolic 49–80; PULSE 68–99; RESP 16–18; TEMP 35.8–36.9; O2SAT 95–100
[2024-07-30] MEDS: ACETAMINOPHEN 325 MG TABLET 650 MG PO ×4 (04:02→23:47)
[2024-07-30] MEDS: SODIUM CHLORIDE 0.9% FLUSH 10 ML IV ×3 (04:04→22:11)
[2024-07-30 06:09] LABS: Hematocrit 22.4 % (36-46); Hemoglobin 7.9 g/dL (12.0-16.0)
[2024-07-30 06:23] LABS: BUN Creatinine Ratio 19.4 (6-22); Blood Urea Nitrogen 56 mg/dL (7-17); Calcium 8.5 mg/dL (8.4-10.2); Carbon Dioxide 23 mmol/L (22-32); Chloride 105 mmol/L (98-107); Estimated Glomerular Filt Rate 15 mL/min (>60); Glucose 119 mg/dL (70-99); HEMOLYSIS < 15 (0-50); Potassium 4.1 mmol/L (3.4-5.1); Sodium 138 mmol/L (137-145)
[2024-07-30] MEDS: APIXABAN 5 MG TABLET 2.5 MG PO ×2 (09:31→21:02)
[2024-07-30] MEDS: METOPROLOL ER 50 MG TABLET 100 MG PO ×2 (09:31→21:02)
[2024-07-30] MEDS: PANTOPRAZOLE DR 40 MG TABLET PO ×2 (09:31→21:02)
--- NOTE | 2024-07-30 13:41 | CM.DPNOTE ---
DCP Cont Reviewed chart. Patient discussed in multidisciplinary rounds. Medical management continues; telemetry, repeat trops. BERNARDA 07/31. Plan remains discharge home to [facility] w/spouse to transport. Patient declines HH at this time. Outpatient follow up with Cardiology. CM team following clinical course closely in case any discharge needs or concerns arise. JOBY
[2024-07-30 15:39] LABS: Hematocrit 22.9 % (36-46); Hemoglobin 7.8 g/dL (12.0-16.0)
[2024-07-30 16:02] LABS: Troponin I 0.422 ng/mL (0.01-0.034)
[2024-07-30] MEDS: FUROSEMIDE 20 MG TABLET PO (17:04)
--- NOTE | 2024-07-30 17:56 | PM.PN.1 ---
Subjective Subjective Interval history: Summary: Patient presented with syncopal episode, has known history of AF on chronic anticoagulation and critical . Being evaluated by [facility] for possible TAVR. She was anemic yesterday, responded well to 1U PRBC. She is feeling well today but h/h declined again. Troponin did peak and downtrended this afternoon. S: No dyspnea or chest pain. No edema. She had a normal bowel movement this afternoon. Exam Vital Signs (past 8 hours): - 07/30/24 10:10 07/30/24 12:00 07/30/24 16:00 Temperature 96.8 F L 97.8 F Pulse Rate 73 70 68 Respiratory Rate 16 16 Blood Pressure 107/49 L 114/52 L Pulse Oximetry 95 98 Oxygen Flow Rate 0 0 Oxygen Delivery Method Room Air Oxygen Flow Rate 0 Narrative Exam Narrative: NAD, alert and oriented. Fluent speech. Lungs are clear, normal rate and effort. Heart is irregular, 4/6 systolic murmur and no gallop or rub. Abdomen is soft, non distended. Extremities are free of edema. Objective Labs 07/30/24 15:24 07/30/24 05:50 Labs: Laboratory Results - last 24 hr 07/30/24 07/30/24 05:50 15:24 Hgb 7.9 L 7.8 L Hct 22.4 L 22.9 L Sodium 138 Potassium 4.1 Chloride 105 Carbon Dioxide 23 BUN 56 H Creatinine 2.89 H Estimated GFR 15 L BUN/Creatinine Ratio 19.4 Glucose 119 H Calcium 8.5 Troponin I 0.640 H* 0.422 H* PFSH Medical History CHF (congestive heart failure) Atrial fibrillation Social History household members: spouse Smoking Status: Former smoker alcohol intake: current Assessment & Plan Assessment & Plan narrative: 1. Syncope, resolved. 2. CKD 4, stable. 3. Severe aortic stenosis, active. 3. Possible CHF, active. 4. Atrial fibrillation, stable. On Eliquis. 5. 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 6. Myocardial injury. Followed by [facility]. Rush (valve) PLAN: -continue telemetry. Troponin did downtrend this afternoon. -DNR -1 unit of blood given with Lasix 20 IV, she responded well but h/h has been downtrending again. Will continue to monitor for stability. -resumed metoprolol and monitor heart rate -ideally can discharge home with cardiology follow up next week for possible TAVR, however need to confirm stability of h/h. suspect syncope a result of her anemia and aortic stenosis. Will resume home furosemide at half usual dosing today. -continue home apixaban. BERNARDA: 07/31, if h/h stabilized. Changed to inpatient status today. Code: DNR Time-Based Coding :: [TOTAL MINUTES] spent with patient and on the chart (including review of chart, obtaining history, exam, reviewing outside data, placing orders, documenting exam and treatment plan, and counseling patient) on [DATE].
[2024-07-31 04:12] VITALS: BP 127/70; PULSE 72; RESP 18; TEMP 36.6; O2SAT 95
[2024-07-31 04:56] LABS: Add Manual Diff / Slide Review NO; Basophils Absolute Auto 100 /uL (0-100); Basophils Percent Auto 1.1 % (0-2); Eosinophils Absolute Auto 300 /uL (0-450); Hematocrit 23.3 % (36-46); Hemoglobin 7.9 g/dL (12.0-16.0); Lymphocytes Absolute Auto 1300 /uL (1100-4500); Mean Corpuscular HGB Conc 33.9 % (30-36); Mean Corpuscular Hemoglobin 32.7 PG (26-34); Mean Corpuscular Volume 96.4 fL (80-100); Monocytes Absolute Auto 700 /uL (0-900); Monocytes Percent Auto 9.3 % (3-14); Neutrophils Absolute Auto 5400 /uL (1500-7000); Neutrophils Percent Auto 68.6 % (50-75); Platelet Count 214 X10^3/uL (150-400); Red Blood Cell Count 2.42 X10^6/uL (4.0-5.2); Red Cell Distribution Width 15.5 % (11.6-14.8); White Blood Cell Count 7.9 X10^3/uL (4.5-11.0)
[2024-07-31 05:30] LABS: Alanine Aminotransferase 32 IU/L (<35); Albumin 3.4 g/dL (3.5-5.0); Albumin Globulin Ratio 1.5 (1.0-2.8); Alkaline Phosphatase 71 U/L (38-126); Aspartate Aminotransferase 54 IU/L (14-36); BUN Creatinine Ratio 20.7 (6-22); Blood Urea Nitrogen 57 mg/dL (7-17); Calcium 8.9 mg/dL (8.4-10.2); Carbon Dioxide 24 mmol/L (22-32); Chloride 105 mmol/L (98-107); Estimated Glomerular Filt Rate 16 mL/min (>60); Globulin 2.3 g/dL (1.7-4.1); Glucose 113 mg/dL (70-99); HEMOLYSIS < 15 (0-50); Magnesium 1.9 mg/dL (1.6-2.3); Potassium 4.1 mmol/L (3.4-5.1); Sodium 138 mmol/L (137-145); Total Protein 5.7 g/dL (6.3-8.2)
[2024-07-31 07:03] LABS: Troponin I 0.402 ng/mL (0.01-0.034)
[2024-07-31 08:00] VITALS: BP 144/73; PULSE 75; RESP 16; TEMP 36.1; O2SAT 98
[2024-07-31 08:54] VITALS: BP 144/73; PULSE 75
[2024-07-31] MEDS: METOPROLOL ER 50 MG TABLET 100 MG PO (08:54)
[2024-07-31] MEDS: ACETAMINOPHEN 325 MG TABLET 650 MG PO (08:54)
[2024-07-31] MEDS: APIXABAN 5 MG TABLET 2.5 MG PO (08:55)
[2024-07-31] MEDS: FUROSEMIDE 20 MG TABLET PO (08:59)
[2024-07-31 09:45] VITALS: BP 142/70
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
[2024-07-31] MEDS: PANTOPRAZOLE DR 40 MG TABLET PO (11:14)
--- NOTE | 2024-07-31 11:18 | PC.NURSE ---
Addendum entered by Esme Salcedo R.N. 07/31/24 14:05: Home instructions given w/understanding. SL D/C'd Pt ride here; pt escorted by staff via W/C to waiting vehuicle D/C in stable status. Original Note: Pt sitting in chair all morning. Denies any issues. SL intact/patent MD in to see. Discharge orders received. Pt waiting on transportation home. Call light w/in reach, pt calls appropriately for needs. Continue w/ plan of care.
[2024-07-31 12:00] VITALS: RESP 20
--- NOTE | 2024-07-31 14:10 | CM.DPNOTE ---
DC Note Discharge home to [facility] with spouse to transport home. No further needs from this SW team. Follow up with cardiology. JW
== END 2024-07-31 14:06 | disposition home or self-care (01) | DRG 812 ==
LOC: ED 06:39 → AC 07:23
PROVIDERS: Internal Medicine; Admitting Provider Hospitalist; Emergency Provider Family Medicine; PCP Internal Medicine; Referring Provider Family Medicine; Visit Provider Hospitalist
DX: D50.0 Iron deficiency anemia secondary to blood loss (chronic) (principal); N18.4 Chronic kidney disease, stage 4 (severe); Q24.5 Malformation of coronary vessels; I5A Non-ischemic myocardial injury (non-traumatic); R55 Syncope and collapse; I95.2 Hypotension due to drugs; I35.0 Nonrheumatic aortic (valve) stenosis; I48.91 Unspecified atrial fibrillation; S01.312A Laceration without foreign body of left ear, initial encounter; S70.02XA Contusion of left hip, initial encounter; W18.30XA Fall on same level, unspecified, initial encounter; Z87.891 Personal history of nicotine dependence; Z96.643 Presence of artificial hip joint, bilateral; Z79.01 Long term (current) use of anticoagulants; Z66 Do not resuscitate
CPT/HCPCS: 12011; 36415; 36430; 70450; 71045; 72170; 72192; 80048; 80053; 82550; 83690; 83735; 83880; 84484; 85014; 85018; 85025; 85027; 85610; 85730; 86850; 86900; 86901; 93005; 99284; G0378; P9016; J1938

== ENCOUNTER → 2024-10-06 13:17 | Outpatient (CLI) | payer MEDICARE, OTHER, SELFPAY ==
[2024-07-28 12:47] VITALS: BMI 28.2
--- NOTE | 2024-10-06 13:21 | DI.US.S_ITS ---
PROCEDURE: US VENOUS INSUFFICIENCY BILAT INDICATIONS: AORTIC VALVE STENOSIS/BILAT EDEMA ?VENOUS REFLUX TECHNIQUE: Real time scanning was performed of the lower extremity venous system, with imaging documentation, as well as Color and pulse Doppler interrogation. COMPARISON: None. FINDINGS: RIGHT LOWER EXTREMITY: The deep veins are normally compressible, and free of intraluminal thrombus. Color and pulse Doppler demonstrate normal intravascular flow. There is normal augmentation with distal compression maneuver. Greater saphenous vein (GSV): Normally 4 mm or less in diameter, with any reflux less than 0.5 seconds. Saphenofemoral junction (SFJ): Normal size. No reflux. Proximal GSV: Normal size, No reflux. Mid GSV: Normal size. No reflux. Distal GSV: Normal size. No reflux. Small saphenous vein (SSV): Posterior calf, draining into popliteal vein. Posterior calf: Complex tendon and normal in size. No reflux. Vein of Giacomini (posterior thigh connection between GSV and SSV): Anatomic variant not seen. LEFT LOWER EXTREMITY: The deep veins are normally compressible, and free of intraluminal thrombus. Color and pulse Doppler demonstrate normal intravascular flow. There is normal augmentation with distal compression maneuver. Greater saphenous vein (GSV): Normally 4 mm or less in diameter, with any reflux less than 0.5 seconds. Saphenofemoral junction (SFJ): Normal in size. No reflux. Proximal GSV: Normal in size.. No reflux. Mid GSV: Normal in size.. No reflux. Distal GSV: Normal size. No reflux. Calf GSV: Normal size. No reflux. Anterior accessory GSV (AAGSV): Anatomic variant not present across anterior thigh. Small saphenous vein (SSV): Posterior calf, draining into popliteal vein. Posterior calf: Patent. No reflux. Vein of Giacomini (posterior thigh connection between GSV and SSV): Anatomic variant not seen. IMPRESSION: 1. Competent bilateral lower leg veins without significant reflux. 2. No evidence of DVT in visualized bilateral lower extremity veins. Dictated by: Olayinka Edmonds M.D. on 10/08/2024 at 11:53 Approved by: Olayinka Edmonds M.D. on 10/08/2024 at 11:56
== END ==
PROVIDERS: PCP Internal Medicine; Referring Provider Internal Medicine Cardiovascular Disease; Visit Provider Internal Medicine Cardiovascular Disease
DX: R60.0 Localized edema (principal)
CPT/HCPCS: 93970

== ENCOUNTER → 2024-10-06 13:22 | Outpatient (CLI) | payer MEDICARE, OTHER, SELFPAY ==
[2024-07-28 12:47] VITALS: BMI 28.2
--- NOTE | 2024-10-06 13:23 | DI.ECHO.S_ITS ---
[facility]+ [facility] : : [id number] : [address] : : [id number] : : Phone: [phone] Echocardiogram Report + + :Name: OLIVA CHANEY Study Date: 10/06/2024 Height: 62 in : :Hospital ReadingLocation: Weight: 140 lb : : Gender: Female BSA: 1.6 m2 : :: 1935 Age: 89 yrs BP: 144/81 mmHg: :Reason For Study: AORTIC VALVE STENOSIS : :Ordering Physician: HARRY, : :LEEROY Performed By: Nancy Connors : :Referring: LEEROY MCDONALD : + + Interpretation Summary Normal wall thickness at the base with significant hypertrophy of mid to LV apex this was noted on the prior exam as well. During systole, there is almost complete systolic obliteration of the mid LV cavity. In some of the apical views, suspicion for apical akinesis however it was not well-visualized. Giving vivi of spades appearance mid to LV apex, overall left ventricle volume size borderline small. Overall LVEF 60 to 65%. Diastolic parameters suggest a restrictive filling pattern consistent with probable significantly elevated filling pressures. There is moderate mitral regurgitation. Compared to the prior echo study, there has been no change in the severity of mitral regurgitation. The aortic valve is trileaflet. Aortic valve moderate to heavily calcified. The aortic valve area is 1.2 centimeters squared by planimetry. Previously 1.1centimeters squared by planimetry The peak aortic velocity is 2.89 m/sec. The peak aortic velocity on the previous exam was 2.67 m/sec. The calculated aortic valve area is 0.91 cm2. sev ratio: 0.26 There is moderate to severe aortic stenosis. There is mild aortic regurgitation. No significant change in aortic regurgitation There is mild to moderate tricuspid regurgitation. Previously mild MR. The right ventricular systolic pressure is estimated to be at least 38 mmHg based on an estimated right atrial pressure of 3 mm Hg. Previously 30.3 and before that 36 mmHg. There is mild luminal irregularity and echogenicity in the abdominal aorta, suggestive of aortic atherosclerotic disease. Procedure: A two-dimensional transthoracic echocardiogram with color flow and Doppler was performed. The study quality was technically adequate. Comparison is made with the echocardiogram of 04/13/2024. The patient was in sinus rhythm with heart rates between 68-90 bpm during the exam. Left Ventricle: Normal wall thickness at the base with significant hypertrophy of mid to LV apex this was noted on the prior exam as well. During systole, there is almost complete systolic obliteration of the mid LV cavity. In some of the apical views, suspicion for apical akinesis however it was not well-visualized. Giving vivi of spades appearance mid to LV apex, overall left ventricle volume size borderline small. Overall LVEF 60 to 65%. Diastolic parameters suggest a restrictive filling pattern consistent with probable significantly elevated filling pressures. The estimated left ventricular end diastolic volume is 63 ml. The ejection fraction is estimated to be 60-65%. Grade III diastolic dysfunction with elevated left atrial pressure. Diastolic parameters suggest a restrictive filling pattern consistent with probable significantly elevated filling pressures. Right Ventricle: The right ventricle is normal in size and function. Atria: The left atrium is severely dilated. The left atrium has remained unchanged in size since the prior echo exam. The right atrium is severely dilated. There is no Doppler evidence for an interatrial shunt. Mitral Valve: The mitral valve leaflets are mildly calcified. There is moderate mitral annular calcification. There is moderate mitral regurgitation. Compared to the prior echo study, there has been no change in the severity of mitral regurgitation. Aortic Valve: The aortic valve is trileaflet. Aortic valve moderate to heavily calcified. There is discrete nodular thickening of the non- coronary cusp. The peak aortic velocity is 2.89 m/sec. The aortic valve mean gradient is 18.7 mmHg. The calculated aortic valve area is 0.91 cm2. The aortic valve area is 1.2 centimeters squared by planimetry. The peak aortic velocity on the previous exam was 2.67 m/sec. There is moderate to severe aortic stenosis. There is mild aortic regurgitation. Tricuspid Valve: Tricuspid leaflets are thickened. There is mild to moderate tricuspid regurgitation. The right ventricular systolic pressure is estimated to be at least 38 mmHg based on an estimated right atrial pressure of 3 mm Hg. Pulmonic Valve: The pulmonic valve leaflets appear thickened, but open well. There is mild to moderate pulmonic regurgitation. Great Vessels: The aortic root is normal size. The dimensions of the ascending aorta are normal. There is mild luminal irregularity and echogenicity in the abdominal aorta, suggestive of aortic atherosclerotic disease. The IVC is of normal diameter and collapses greater than 50% with a sniff. This suggests a low right atrial pressure of 3 mm Hg. Pericardium/ Pleura There is no pericardial effusion. There is an anterior echo-free space consistent with a fat pad. There is no pleural effusion. MMode/2D Measurements & Calculations LVIDd: 5.4 cm LVOT diam: 2.0 cm LVIDs: 3.7 cm Ao root diam: 2.8 cm FS: 31.8 % asc Aorta Diam: 3.6 cm EPSS: 0.68 cm IVSd: 0.78 cm LVPWd: 0.87 cm LV bonds. diameter/BSA (cm/m^2): 3.3 LV sys. diameter/BSA (cm/m^2): 2.2 LA A2 area: 36.8 cm2 RA long axis: 7.3 cm LA A4 area: 33.7 cm2 RA area: 28.0 cm2 LA length (vol): 7.7 cm RA vol: 91.3 ml LA vol: 136.8 ml RA : 55.6 ml/m2 LA vol index: 83.3 ml/m2 IVC diam: 1.3 cm RVD1 (basal): 3.5 cm RVD2 (mid): 2.7 cm TAPSE: 1.4 cm Doppler Measurements & Calculations Ao V2 max: 289.7 cm/sec LVOT Max Mick: 88.1 cm/sec Ao V2 mean: 198.6 cm/sec LV V1 max P.1 mmHg Ao max P.9 mmHg LV V1 VTI: 13.9 cm Ao mean P.7 mmHg LEONEL(I,D): 0.78 cm2 Ao V2 VTI: 53.6 cm LEONEL(V,D): 0.91 cm2 sev ratio: 0.26 LEONEL indexed to BSA (cm^2/m^2): 0.47 AI P1/2t: 793.5 msec AI dec slope: 146.2 cm/sec2 MV E max mick: 102.7 cm/sec TR max mick: 295.2 cm/sec MV A max mick: 34.7 cm/sec TR max P.9 mmHg MV E/A: 3.0 PA V2 max: 84.5 cm/sec Med Peak E' Mick: 5.1 cm/sec PA V2 mean: 54.3 cm/sec E/E' med: 20.0 PA mean P.3 mmHg Lat Peak E' Mick: 4.5 cm/sec PA pr(Accel): 45.6 mmHg E/E' lat: 23.0 E/e' average: 21.5 MV dec time: 0.16 sec MR ERO: 0.16 cm2 MR PISA: 2.8 cm2 SV(LVOT): 41.7 ml MR flow rate: 91.1 cm3/sec MR PISA radius: 0.67 cm Reading Physician:02:45 PM
== END ==
LOC: ECHO 13:22
PROVIDERS: PCP Internal Medicine; Referring Provider Internal Medicine Cardiovascular Disease; Visit Provider Internal Medicine Cardiovascular Disease
DX: R60.0 Localized edema (principal); I35.0 Nonrheumatic aortic (valve) stenosis; I34.0 Nonrheumatic mitral (valve) insufficiency; I70.0 Atherosclerosis of aorta; I35.1 Nonrheumatic aortic (valve) insufficiency
CPT/HCPCS: 93306; 93970